=== PATIENT | female | born 1985 | race Hispanic/Latino ===

== ENCOUNTER 2018-10-23 23:36 | Emergency (ER) | payer BC, SELFPAY ==
[2018-10-24] MEDS ORDERED: MAGNE/ALUM HYDROXD 30 ML UCUP ONE (00:24)
[2018-10-24] MEDS ORDERED: LIDOCAINE VISCOUS 2% SOLN 15 ML UDC ONE (00:25)
[2018-10-24] MEDS ORDERED: ONDANSETRON 4 MG/2 ML VIAL ONE (00:25)
[2018-10-24 00:28] LABS: Absolute Lymphocytes (CBC) 1.7 K/uL (0.7-4.9); Absolute Monocytes 0.4 K/uL (0.1-1.3); Basophils % 0.1 % (0-1.3); Eosinophils % 0.6 % (0-4.4); Hematocrit 36.8 % (36.0-45.0); Lymphocytes % 23.1 % (15.3-44.8); MPV 8.7 fL (7.6-11.3); Monocytes % 5.9 % (3.3-12.3); RBC Red Blood Cell Count 4.32 M/uL (3.86-4.86)
[2018-10-24 00:44] LABS: ALT/SGPT 31 U/L (12-78); AST/SGOT 49 U/L (15-37); Albumin 3.7 g/dL (3.4-5.0); Alkaline Phosphatase 43 U/L (45-117); BUN Blood Urea Nitrogen 22 mg/dL (7-18); Bicarbonate 27 mmol/L (21-32); Bilirubin Direct 0.1 mg/dL (0-0.2); Bilirubin Total 0.2 mg/dL (0.2-1.0); Glucose Level 145 mg/dL (74-106); Lipase 117 U/L (73-393); Potassium 3.1 mmol/L (3.5-5.1); Protein, Total 7.5 g/dL (6.4-8.2); Sodium Level 139 mmol/L (136-145)
[2018-10-24] MEDS ORDERED: NA CHLORIDE 0.9% 500 ML ONE (01:21)
[2018-10-24] MEDS ORDERED: POTASSIUM CL SA 10 MEQ TAB PO ONE (01:21)
[2018-10-24 01:23] LABS: Urine Bacteria 20-50 /HPF (<20); Urine Culture Reflex Order REFLEXED; Urine Mucus MOD /HPF (NONE SEEN); Urine RBC NONE SEEN /HPF (NONE SEEN)
[2018-10-24 02:09] LABS: Urine Blood NEGATIVE (NEG); Urine Glucose NEGATIVE (NEG); Urine Protein 1+ (NEG)
--- NOTE | 2018-10-24 02:55 | ER ---
Nurse's Notes [facility] Name: Xenia Street Age: 33 yrs Sex: Female : 1985 Arrival Date: 10/23/2018 Time: 23:36 Bed 28 Private MD: Diagnosis: Gastritis, unspecified;Upper abdominal pain, unspecified Presentation: 10/23 23:40 Presenting complaint: EMS states: they were toned out for report of pt having upper bb abdominal pain with vomiting x 30 minutes. Transition of care: patient was not received from another setting of care. Onset of symptoms was October 23, 2018. Risk Assessment: Do you want to hurt yourself or someone else? Patient reports no desire to harm self or others. Initial Sepsis Screen: Does the patient meet any 2 criteria? No. Patient's initial sepsis screen is negative. Does the patient have a suspected source of infection? No. Patient's initial sepsis screen is negative. Care prior to arrival: None. 23:40 Method Of Arrival: EMS: [facility] 23:40 Acuity: LAVON 3 bb Triage Assessment: 23:42 General: Appears in no apparent distress. uncomfortable, Behavior is calm, cooperative. bb Pain: Complains of pain in abdomen Pain currently is 8 out of 10 on a pain scale. Neuro: Level of Consciousness is awake, alert, obeys commands, Oriented to person, place, time, situation. Cardiovascular: Heart tones S1 S2 present Capillary refill < 3 seconds Patient's skin is warm and dry. Pulses are all present. Edema is absent. Respiratory: Respiratory effort is even, unlabored, Respiratory pattern is regular. GI: Abdomen is flat, Bowel sounds present X 4 quads. Abd is soft X 4 quads Abdomen is tender to palpation in right upper quadrant Reports vomiting. Derm: Skin is pink, warm \T\ dry. Musculoskeletal: Circulation, motion, and sensation intact. 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 - Social history:: Smoking status: Patient uses tobacco products, denies chronic smoking, but will smoke occasionally, Patient uses alcohol, occasionally. - Ebola Screening: : No symptoms or risks identified at this time. - Family history:: not pertinent. - Hospitalizations: : No recent hospitalization is reported. Screenin:47 Abuse screen: Denies threats or abuse. Nutritional screening: No deficits noted. bb Tuberculosis screening: No symptoms or risk factors identified. Fall Risk None identified. Assessment: 23:47 Reassessment: No changes from previously documented assessment. see triage assessment. bb 10/24 00:24 Reassessment: Patient and/or family updated on plan of care and expected duration. Pain bb level reassessed. Patient is alert, oriented x 3, equal unlabored respirations, skin warm/dry/pink. pt resting quietly, awaiting diagnostic results, family at bedside. 00:59 Reassessment: pt to CT scan via wheelchair with dermatology technician. bb 02:01 Reassessment: Patient and/or family updated on plan of care and expected duration. Pain bb level reassessed. Patient is alert, oriented x 3, equal unlabored respirations, skin warm/dry/pink. IV site intact, no erythema or edema noted family at bedside awaiting CT results Patient states feeling better. 03:02 Reassessment: Patient is alert, oriented x 3, equal unlabored respirations, skin bb warm/dry/pink. pt verbalized understanding of and agrees to plan of care discharge instructions given pt ambulated with steady gait to exit accompanied by spouse Patient states feeling better. Vital Signs: 10/23 23:42 BP 125 / 76; Pulse 66; Resp 16 S; Temp 97.5(O); Pulse Ox 100% on R/A; Weight 70.31 kg bb (R); Height 5 ft. 2 in. (157.48 cm) (R); Pain 8/10; 10/24 00:23 BP 113 / 76; Pulse 70; Resp 14 S; Pulse Ox 100% on R/A; bb 01:39 BP 111 / 72; Pulse 72; Resp 16; Temp 97.9; Pulse Ox 100% ; lt1 03:03 BP 112 / 73; Pulse 86; Resp 14 S; Temp 98(O); Pulse Ox 99% on R/A; bb 10/23 23:42 Body Mass Index 28.35 (70.31 kg, 157.48 cm) bb ED Course: 10/23 23:36 Patient arrived in ED. al2 23:40 Shefali Duffy, DILMA is Primary Nurse. bb 23:41 Triage completed. bb 23:42 Arm band placed on Patient placed in an exam room, on a stretcher, on pulse oximetry. bb Family accompanied patient. 23:44 Tono Alex MD is Attending Physician. rn 23:47 Patient has correct armband on for positive identification. Placed in gown. Bed in low bb position. Call light in reach. Adult w/ patient. Pulse ox on. NIBP on. 10/24 00:19 Radiology exam delayed due to lab results not completed at this time. (HCG) kw1 (BUN/Creatinine). 00:22 Initial lab(s) drawn, by ED staff, sent to lab. Urine collected: clean catch specimen. bb Inserted saline lock: 20 gauge in right antecubital area, using aseptic technique. ,using aseptic technique. by [facility] tech Blood collected. 00:29 Missed attempt(s): 20 gauge in left antecubital area. lt1 00:29 Inserted saline lock: 20 gauge in right antecubital area, using aseptic technique. lt1 00:[address] via wheelchair. kw1 01:06 CT completed. Patient tolerated procedure well. Patient moved back from CT. kw1 01:14 CT Abd/Pelvis - W/Contrast In Process Unspecified. EDMS 02:02 No provider procedures requiring assistance completed. bb 03:03 IV discontinued, intact, bleeding controlled, No redness/swelling at site. Pressure bb dressing applied. Administered Medications: 00:22 Drug: Zofran 4 mg Route: IVP; Site: right antecubital; bb 01:28 Follow up: Response: No adverse reaction bb 00:22 Drug: GI Cocktail without - (Maalox Suspension 30 ml, Lidocaine Liquid 2 % 15 bb ml) Route: PO; : Follow up: Response: No adverse reaction bb 01:15 Drug: Potassium Chloride 40 mEq Route: PO; bb 02:01 Follow up: Response: No adverse reaction bb 01:15 Drug: NS 0.9% 500 ml Route: IV; Rate: bolus; Site: right antecubital; bb 02:01 Follow up: IV Status: Completed infusion; IV Intake: 500ml bb Intake: 02:01 IV: 500ml; Total: 500ml. bb Outcome: 02:54 Discharge ordered by . dilma 03:04 Discharged to home ambulatory, with family. bb 03:04 Condition: stable 03:04 Discharge instructions given to patient, Instructed on discharge instructions, follow up and referral plans. medication usage, Demonstrated understanding of instructions, follow-up care, medications, Prescriptions given X 1. 03:04 Patient left the ED. bb Signatures: Dispatcher [employer] EDShefali Feliciano RN RN bb Nieto, Roman, MD MD rn Wilhelm, Kimberly kw1 Fatoumata, Celi arias2 Gilma, Shireen 1
--- NOTE | 2018-10-24 02:55 | EDPHYS ---
Physician Documentation [facility] Name: Xenia tSreet Age: 33 yrs Sex: Female : 1985 Arrival Date: 10/23/2018 Time: 23:36 Bed 28 Private MD: ED Physician Tono Alex HPI: 10/24 00:06 This 33 yrs old Female presents to ER via EMS with complaints of abdominal rn pain. 00:06 The patient presents with abdominal pain in the epigastric area. Onset: The rn symptoms/episode began/occurred 2 hour(s) ago. The symptoms radiate to Associated signs and symptoms: Pertinent positives: nausea and vomiting, Pertinent negatives: blood in stools, chest pain, constipation, diarrhea, dysuria, fever, headache, shortness of breath, vaginal discharge, vomiting. The symptoms are described as sharp, stabbing. Modifying factors: The symptoms are alleviated by nothing, the symptoms are aggravated by touching the area. Severity of pain: At its worst the pain was moderate in the emergency department the pain has improved. The patient has not experienced similar symptoms in the past. The patient has not recently seen a physician. 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 - Social history:: Smoking status: Patient uses tobacco products, denies chronic smoking, but will smoke occasionally, Patient uses alcohol, occasionally. - Ebola Screening: : No symptoms or risks identified at this time. - Family history:: not pertinent. - Hospitalizations: : No recent hospitalization is reported. ROS: 10/24 00:06 Constitutional: Negative for fever, chills, and weight loss, Eyes: Negative for injury, rn pain, redness, and discharge, Neck: Negative for injury, pain, and swelling, Cardiovascular: Negative for chest pain, palpitations, and edema, Respiratory: Negative for shortness of breath, cough, wheezing, and pleuritic chest pain, Abdomen/GI: + abd pain/nausea/vomiting Back: Negative for injury MS/Extremity: Negative for injury and deformity, Skin: Negative for injury, rash, and discoloration, Neuro: Negative for headache, weakness, numbness, tingling, and seizure. Exam: 00:06 Constitutional: This is a well developed, well nourished patient who is awake, alert, rn and in no acute distress. Head/Face: Normocephalic, atraumatic. Eyes: Pupils equal round and reactive to light, extra-ocular motions intact. Lids and lashes normal. Conjunctiva and sclera are non-icteric and not injected. Cornea within normal limits. Periorbital areas with no swelling, redness, or edema. ENT: MMM Respiratory: No increased work of breathing, no retractions or nasal flaring. Abdomen/GI: soft, mild epigastric tenderness, no rebound, neg patel Skin: Warm, dry with normal turgor. Normal color with no rashes, no lesions, and no evidence of cellulitis. MS/ Extremity: Pulses equal, no cyanosis. Neurovascular intact. Full, normal range of motion. Equal circumference. Vital Signs: 10/23 23:42 BP 125 / 76; Pulse 66; Resp 16 S; Temp 97.5(O); Pulse Ox 100% on R/A; Weight 70.31 kg bb (R); Height 5 ft. 2 in. (157.48 cm) (R); Pain 8/10; 10/24 00:23 BP 113 / 76; Pulse 70; Resp 14 S; Pulse Ox 100% on R/A; bb 01:39 BP 111 / 72; Pulse 72; Resp 16; Temp 97.9; Pulse Ox 100% ; lt1 03:03 BP 112 / 73; Pulse 86; Resp 14 S; Temp 98(O); Pulse Ox 99% on R/A; bb 10/23 23:42 Body Mass Index 28.35 (70.31 kg, 157.48 cm) bb MDM: 10/23 23:44 Patient medically screened. rn 10/24 02:53 Differential diagnosis: cholecystitis, Cholelithiasis, gastritis, gastroesophageal rn reflux disease, non-specific abd pain, pancreatitis. Data reviewed: vital signs, nurses notes, lab test result(s), radiologic studies, CT scan, and as a result, I will discharge patient. Counseling: I had a detailed discussion with the patient and/or guardian regarding: the historical points, exam findings, and any diagnostic results supporting the discharge/admit diagnosis, lab results, radiology results, the need for outpatient follow up, to return to the emergency department if symptoms worsen or persist or if there are any questions or concerns that arise at home. Special discussion: Based on the patient's Hx, exam, and Dx evaluation, there is no indication for emergent surgery or inpatient Tx. It is understood by the patient/guardian that if the Sx's persist or worsen they need to return immediately for re-evaluation. I discussed with the patient/guardian in detail that at this point there is no indication for admission to the hospital. It is understood, however, that if the symptoms persist or worsen the patient needs to return immediately for re-evaluation. ED course: Pt improved after GI cocktail, sleeping comfortably, ct scan negative and labs unremarkable except for mild hypokalemia. . 10/23 23:50 Order name: Basic Metabolic Panel; Complete Time: 00:45 rn 10/23 23:50 Order name: CBC with Diff; Complete Time: 00:45 rn 10/23 23:50 Order name: Hepatic Function; Complete Time: 00:45 rn 10/23 23:50 Order name: Lipase; Complete Time: 00:45 rn 10/23 23:50 Order name: Urine Microscopic Only; Complete Time: 01:39 rn 10/24 00:34 Order name: Urine Dipstick--Ancillary (enter results); Complete Time: 02:49 ag4 10/23 23:50 Order name: IV Saline Lock; Complete Time: 00:22 rn 10/23 23:50 Order name: CT Abd/Pelvis - W/Contrast rn 10/24 00:34 Order name: Urine --Ancillary (enter results); Complete Time: 02:49 ag4 10/24 01:24 Order name: Urine Culture EDKS 10/23 23:50 Order name: Labs collected and sent; Complete Time: 00:22 rn 10/23 23:50 Order name: Urine Test (obtain specimen); Complete Time: 00:22 rn 10/23 23:50 Order name: Urine Dipstick-Ancillary (obtain specimen); Complete Time: 00:22 rn Administered Medications: 00:22 Drug: Zofran 4 mg Route: IVP; Site: right antecubital; bb 01:28 Follow up: Response: No adverse reaction bb 00:22 Drug: GI Cocktail without - (Maalox Suspension 30 ml, Lidocaine Liquid 2 % 15 bb ml) Route: PO; :28 Follow up: Response: No adverse reaction bb 01:15 Drug: Potassium Chloride 40 mEq Route: PO; bb 02:01 Follow up: Response: No adverse reaction bb 01:15 Drug: NS 0.9% 500 ml Route: IV; Rate: bolus; Site: right antecubital; bb 02:01 Follow up: IV Status: Completed infusion; IV Intake: 500ml bb Disposition: 10/24/18 02:54 Discharged to Home. Impression: Gastritis, unspecified, Upper abdominal pain, unspecified. - Condition is Stable. - Discharge Instructions: Abdominal Pain, Adult, Gastritis, Adult. - Prescriptions for Zantac 300 mg Oral Tablet - take 1 tablet by ORAL route At bedtime; 30 tablet. - Medication Reconciliation Form, Thank You Letter, Antibiotic Education, Prescription Opioid Use form. - Follow up: Private Physician; When: As needed; Reason: Recheck today's complaints, Re-evaluation by your physician. - Problem is new. - Symptoms have improved. Signatures: Dispatcher [employer] EDShefali Feliciano RN RN bb Nieto, Roman, MD MD learning support teacher: (The following items were deleted from the chart) 03:04 02:54 10/24/2018 02:54 Discharged to Home. Impression: Gastritis, unspecified; Upper bb abdominal pain, unspecified. Condition is Stable. Forms are Medication Reconciliation Form, Thank You Letter, Antibiotic Education, Prescription Opioid Use. Follow up: Private Physician; When: As needed; Reason: Recheck today's complaints, Re-evaluation by your physician. Problem is new. Symptoms have improved. rn
[2018-10-24 03:19] VITALS: BP 112/73; TEMP 98; O2SAT 99
--- NOTE | 2018-10-24 12:04 | RAD REPORT ---
EXAM DESCRIPTION: CTAbdomen Pelvis W Contrast - 10/24/2018 5:49 am CLINICAL HISTORY: Abdominal pain. IV contrast only;Abd pain COMPARISON: No comparisons TECHNIQUE: Biphasic CT imaging of the abdomen and pelvis was performed with 100 ml non-ionic IV cont rast. All CT scans are performed using dose optimization technique as appropriate and may include automated exposure control or mA/KV adjustment according to patient size. FINDINGS: The lung bases are clear.Postsurgical changes are present about the stomach. The liver, spleen, pancreas, adrenal glands and kidneys are within normal limits. No bowel obstruction, free air, free fluid or abscess. The appendix is not identified as a discrete structure, however, no secondary findings of appendicitis are identified. No evidence of significan t lymphadenopathy. No suspicious bony findings. IMPRESSION: No acute intra-abdominal or pelvic finding.
== END 2018-10-24 03:04 | disposition home or self-care (01) ==
LOC: ER 23:36
DX: K29.70 Gastritis, unspecified, without bleeding (principal); E03.9 Hypothyroidism, unspecified; Z72.0 Tobacco use; Z98.82 Breast implant status
CPT/HCPCS: 36415; 74177; 80048; 80076; 81003; 81015; 81025; 83690; 85025; 87086; 87088; 96361; 96374; 99285; J2405; Q9967